=== PATIENT | female | born 1955 | race African-American/Black ===

== ENCOUNTER 2024-07-16 08:24 | Outpatient (CLI) | payer MEDICARE, SELFPAY ==
--- NOTE | ~2024-07-16 | XR_ITS ---
XR chest 2V Ordering provider: Dick Gerard History: 68 years Female with . Psoriasis vulgaris . Comparison: None. FINDINGS: MEDIASTINUM: The cardiac silhouette is not enlarged. LUNGS: No infiltrates, effusions or pneumothorax. OTHER: No free air under the diaphragm. IMPRESSION: No acute cardiopulmonary pathology. Reviewed, dictated and finalized at location A. PRODUCTION ASSISTANT
== END 2024-07-16 08:25 | disposition home or self-care (01) ==
DX: L40.0 Psoriasis vulgaris (principal); Z79.899 Other long term (current) drug therapy
CPT/HCPCS: 71046

== ENCOUNTER 2025-08-05 08:24 | Outpatient (CLI) | payer MEDICARE, SELFPAY ==
--- NOTE | ~2025-08-05 | XR_ITS ---
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 Technique: 2 views obtained. Findings: The lungs are clear, no effusion. No pneumothorax. Heart is normal size. Mediastinal and hilar contours are within normal limits. Bony thorax no acute abnormality. Impression: No acute cardiopulmonary abnormality. Reviewed, dictated and finalized at location P. LINE OPERATOR Impression: No acute cardiopulmonary abnormality.
== END 2025-08-05 08:25 | disposition home or self-care (01) ==
DX: L40.0 Psoriasis vulgaris (principal)
CPT/HCPCS: 71046